=== PATIENT | female | born 1965 | race Caucasian/White ===

== ENCOUNTER 2020-03-04 09:20 | Emergency (ER) | payer OTHER, SELFPAY ==
[2020-03-04] VITALS (32 sets, daily range): BP systolic 104–130; BP diastolic 60–85; PULSE 69–96; RESP 12–20; TEMP 36.4; O2SAT 93–100
--- NOTE | ~2020-03-04 | XR_ITS ---
EXAMINATION: XR chest 2V DATE: 03/04/2020 10:01 INDICATION: Chest pain TECHNIQUE: PA and lateral views of the chest are obtained. COMPARISON: 07/26/2013 FINDINGS: The lungs are free of acute opacities. Calcified pulmonary nodules are consistent with old granulomatous disease. There is no pleural effusion or pneumothorax. The cardiomediastinal silhouette is normal. There is mild thoracic dextrocurvature. IMPRESSION: 1. No acute cardiopulmonary abnormality. Reviewed, dictated and finalized at location B.
--- NOTE | 2020-03-04 09:31 | ECG_ITS ---
Measurements Intervals [place] Rate: 84 P: 65 MI: 136 QRS: 8 QRSD: 101 T: 42 QT: 363 QTc: 430 Interpretive Statements SINUS RHYTHM LEFT ATRIAL ENLARGEMENT BORDERLINE ST ABNORMALITY- ANTEROLAT/INF LEADS BASELINE ARTIFACT- II, III, AVF, V1 BORDERLINE ECG Electronically Signed On 03-04-2020 10:03:17 CDT by Sam Reynaga D.O.
[2020-03-04 09:49] LABS: Basophils Percent Auto 0.4 % (0.2-1.2); Eosinophils Percent Auto 0.5 % (0-4.4); Hematocrit 42.7 % (37.0-47.0); Hemoglobin 14.2 g/dL (12.0-15.0); Immature Granulocyte Absolute 0.02 K/mm3 (0.00-0.031); Immature Granulocyte Percent A 0.2 % (0-0.5); Lymphocytes Absolute Auto 1.84 K/mm3 (0.9-3.2); Lymphocytes Percent Auto 22.5 % (18.3-44.2); Mean Corpuscular HGB Conc 33.3 g/dl (32-36); Mean Corpuscular Hemoglobin 30.5 pg (26-34); Mean Corpuscular Volume 91.6 fl (80-100); Mean Platelet Volume 10.2 fl (7.4-10.4); Monocytes Absolute Auto 0.5 K/mm3 (0.1-0.6); Monocytes Percent Auto 5.7 % (2.6-8.5); Neutrophils Absolute Auto 5.8 K/mm3 (1.3-6.7); Neutrophils Percent Auto 70.7 % (45.5-73.1); Platelet Count Result 271 k/mm3 (150-375); Red Blood Count 4.66 M/mm3 (4.2-5.4); Red Cell Distribution Width 12.4 % (11.5-14.5); White Blood Count 8.2 K/mm3 (4.5-10.0)
[2020-03-04 09:59] LABS: INR 1.3; Prothrombin Time 16.1 Seconds (11.1-14.7)
[2020-03-04 10:00] LABS: Partial Thromboplastin Time 30.6 SECONDS (22.3-36.8)
[2020-03-04 10:03] LABS: Anion Gap 12.4 mmol/L (7-16); Blood Urea Nitrogen 10 mg/dL (7-17); Calcium 9.3 mg/dL (8.4-10.2); Carbon Dioxide 26 mmol/L (22-30); Chloride 103 mmol/L (98-107); Estimated CRCL calculation 75 ml/min; Estimated Glomerular Filt Rate > 60; Glucose 112 mg/dL (65-105); Potassium 3.4 mmol/L (3.4-5.0); Sodium 138 mmol/L (137-145)
[2020-03-04 10:15] LABS: Troponin I < 0.012 ng/mL (0.000-0.034)
--- NOTE | 2020-03-04 10:50 | ED.CHESTPAIN ---
HPI - Chest Pain General Chief Complaint: Chest Pain Stated Complaint: CHEST PAINS AND NUMBNESS Time Seen by Provider: 03/04/20 10:41 History of Present Illness HPI narrative: Parents dropped up with the ED by her parents for chest pain. She has had lower left chest pain for 3 days. She has a history of VSD. She has had a full work-up for possible stroke including a TTE. Her first episode of the chest pain was when she bent over and it radiated up to her jaw on both arms. That is been intermittent over the last 3 days. She stated home and pretty much stayed in bed for that time. She has some shortness of breath over the last 3 days. S she had a GI illness in October and November which she thought might be a COVID variant , but she tested negative for COVID.She is currently unemployed but has a new job coming up in [place]. She was treated with omeprazole for reflux for years, and just weaned off her omeprazole, 10 days ago. She does not smoke cigarettes, she rarely drinks wine, she does not smoke marijuana. Surgical history of D&C, and tonsillectomy. She has not been sick in the last couple. MD complaint: chest pain Pertinent past history: other (VSD) Onset (ago): day(s) Timing of current episode: episodic Prior episodes: Yes Onset: during rest Related Data Home Medications Medication Instructions Recorded Confirmed apixaban [Eliquis] 5 mg PO BID 03/04/20 atorvastatin 20 mg PO DAILY 03/04/20 omeprazole 20 mg PO BID 03/04/20 Allergies Allergy/AdvReac Type Severity Reaction Status Date / Time SHELLFISH Allergy Severe shock Uncoded 12/13/17 09:41 shellfish Allergy Unknown Uncoded 01/30/03 14:05 Review of Systems Review of Systems: Narrative: CONSTITUTIONAL: Denies fever, chills, or sweats. EYES: Denies visual changes, redness, or discharge. ENT: Denies rhinorrhea, congestion, sore throat, or otalgia. CARDIOVASCULAR: Denies chest pain now, palpitations, or edema. RESPIRATORY: Denies cough or dyspnea. GASTROINTESTINAL: Denies abdominal pain, nausea, vomiting, or diarrhea. GENITOURINARY: Denies dysuria or hematuria. SKIN: Denies rash or itching. MUSCULOSKELETAL: Denies back pain, joint pain, or myalgia. NEUROLOGIC: Denies headache, numbness, or weakness. PSYCHIATRIC: Denies anxiety or depression. All systems reviewed & are unremarkable except as noted in HPI and below PMFSH Surgical History Surgical History (Updated 03/04/20 @ 10:55 by Megan Robb MD) History of D&C History of tonsillectomy Social History Social History (Updated 03/04/20 @ 10:55 by Megan Robb MD) Smoking status: Never smoker Alcohol intake: current Substance use: never Gender identity (if verbalized by the patient): Female Exam Narrative: Exam Narrative: GENERAL: Well-appearing, well-nourished, and in no acute distress. Sveta lady. HEAD: Normocephalic, atraumatic. EYES: PERRLA and EOMI. ENT: Nares clear, no rhinorrhea or epistaxis. Mucous membranes moist. NECK: Supple. CHEST: Clear to auscultation. No respiratory distress. HEART: Regular rate and rhythm. Moderate murmur. Normal peripheral pulses. ABDOMEN: Soft, nontender, nondistended, normal active bowel sounds. EXTREMITIES: Normal range of motion. No edema. SKIN: Warm, dry, no rash. NEURO: No focal deficits. Alert and oriented x3. PSYCH: Normal mood and affect. Course Reevaluation(s) Reevaluation #1: Went in to tell the patient that all of her tests were normal and she could be discharged. I told her to resume her omeprazole. And she reinforced the idea that her hands go numb particularly at night. I suggested she might have carpal tunnel syndrome. She should get the cock-up splints, and try those. Date: 03/04/20 Time: 13:25 Vital Signs Vital signs: Vital Signs Pulse Rate 96 03/04/20 09:37 Respiratory Rate 18 03/04/20 09:37 Pulse Oximetry 93 03/04/20 09:37 Temperature 97.5 F L 03/04/20 09:47 Pulse Rate 81 03/04/20 12:31 Respiratory
[2020-03-04 11:29] LABS: NT Pro B Type Natriuretic Pept 39 PG/ML (5-100)
[2020-03-04 13:12] LABS: Troponin I < 0.012 ng/mL (0.000-0.034)
== END 2020-03-04 13:32 | disposition home or self-care (01) ==
PROVIDERS: Emergency Provider Emergency Medicine
DX: Q21.0 Ventricular septal defect (principal); Q25.42 Hypoplasia of aorta; R07.89 Other chest pain; R94.31 Abnormal electrocardiogram [ECG] [EKG]
CPT/HCPCS: 36415; 71046; 80048; 83880; 84484; 85025; 85610; 85730; 93005; 99284